=== PATIENT | female | born 1960 | race Caucasian/White ===

== ENCOUNTER 2018-05-29 09:03 | Emergency (ER) | payer MEDICAID ==
[2018-05-29 09:27] VITALS: BP 137/75
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
[2018-05-29 09:55] LABS: CHLORIDE,CL 105 mmol/L (98-107); SODIUM,NA 141 mmol/L (136-145)
[2018-05-29] MEDS ORDERED: Sodium Chloride 0.9% 10 ML Syringe FLUSH PRN (10:26)
[2018-05-29] MEDS ORDERED: Iopamidol 755 Mg/ML 100 ML Bottle IVPUSH ONE (10:51)
[2018-05-29] MEDS ORDERED: Ketorolac 60 MG/2 ML SDV IM ONE (12:56)
[2018-05-29] MEDS ORDERED: methylPREDNISolone Acetate 80 MG/ML SDV IM ONE (12:56)
== END 2018-05-29 13:25 | disposition home or self-care (01) ==
LOC: LL.ED 09:03
DX: M15.0 Primary generalized (osteo)arthritis (principal); R79.1 Abnormal coagulation profile; F41.8 Other specified anxiety disorders; K21.9 Gastro-esophageal reflux disease without esophagitis; Z71.6 Tobacco abuse counseling; I10 Essential (primary) hypertension; F17.210 Nicotine dependence, cigarettes, uncomplicated; Z91.09 Other allergy status, other than to drugs and biological substances; Z88.0 Allergy status to penicillin; Z88.2 Allergy status to sulfonamides; Z79.899 Other long term (current) drug therapy; Z98.890 Other specified postprocedural states; Z98.51 Tubal ligation status
CPT/HCPCS: 36415; 71275; 72131; 73700; 80053; 84550; 85025; 85379; 85610; 85730; 93970; 96372; 99284; J1040; J1885; Q9967

== ENCOUNTER 2018-07-19 08:26 | Emergency (ER) | payer MEDICAID ==
[2018-07-19 08:30] VITALS: BP 135/80
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
== END 2018-07-19 09:44 | disposition home or self-care (01) ==
LOC: LL.ED 08:26
DX: J04.0 Acute laryngitis (principal); E78.00 Pure hypercholesterolemia, unspecified; I10 Essential (primary) hypertension; Z88.0 Allergy status to penicillin; Z88.2 Allergy status to sulfonamides; Z79.899 Other long term (current) drug therapy
CPT/HCPCS: 36415; 85025; 87081; 87430; 99284